=== PATIENT | male | born 1970 | race African-American/Black ===

== ENCOUNTER 2019-07-29 13:04 | Emergency (ER) | payer SELFPAY ==
[~2019-07-29] VITALS: Ht 180.3 cm; Wt 88.5 kg
[2019-07-29 13:07] VITALS: BP 142/100
--- NOTE | 2019-07-29 13:28 | NUR ---
48 YO MALE C/O HEADACHE, HEART PALPITATION X LAST NIGHT, RIGHT HAND ITCHING S/O SPIDER BITE X LAST WEEK. MED HX: DENIES
[2019-07-29 14:03] VITALS: BP 133/89
--- NOTE | 2019-07-29 14:03 | NUR ---
Patient discharged with v/s stable. Written and verbal after care instructions given and explained. Patient alert, oriented and verbalized understanding of instructions. Ambulatory with steady gait. All questions addressed prior to discharge. ID band removed. Patient advised to follow up with PMD. Rx of Benadryl cream and Atarax given. Patient educated on indication of medication including possible reaction and side effects. Opportunity to ask questions provided and answered.
== END 2019-07-29 14:03 | disposition home or self-care (01) ==
LOC: MED 13:04
DX: R51 Headache (principal); R00.2 Palpitations; T45.0X5A Adverse effect of antiallergic and antiemetic drugs, initial encounter; Y92.89 Other specified places as the place of occurrence of the external cause
CPT/HCPCS: 93005; 99283